=== PATIENT | female | born 2000 | race Caucasian/White ===

== ENCOUNTER 2021-06-10 21:58 | Emergency (ER) | payer OTHER ==
[2021-06-11 01:53] LABS: HEMOGLOBIN 12.7 gm/dl (12.3-15.3); RED BLOOD COUNT 4.22 M/UL (4.00-5.10)
[2021-06-11 02:18] LABS: BUN/CREATININE RATIO 13 (0-10)
[2021-06-11] MEDS ORDERED: CEPHALEXIN500 M1 PO (03:28)
== END 2021-06-11 03:45 | disposition home or self-care (01) ==
LOC: ER1 21:58
PROVIDERS: Physician Assistant
DX: O20.0 Threatened abortion (principal); Z3A.01 Less than 8 weeks gestation of pregnancy; O98.811 Other maternal infectious and parasitic diseases complicating pregnancy, first trimester; R82.71 Bacteriuria
CPT/HCPCS: 80053; 81001; 84702; 85025; 86900; 86901; 87086; 96374; 99284; J2760; J2765; J7030